=== PATIENT | male | born 1970 | race Caucasian/White ===

== ENCOUNTER 2017-08-24 08:48 | Emergency (ER) | payer OTHER ==
[~2017-08-24] VITALS: Wt 111.1 kg
[~2017-08-24 08:48] MED LIST: 'PARAFON FORTE500 M1 PO; AMOXICILLIN500 MG PO; ANTIVERT25 MG PO; BACTRIM DS 8001 TA1 PO; DICLOFENAC POT.50 MG PO; GOOD NEIGHBOR M25 M1 PO; HYDROCODONE BIT1 T11 PO; KEFLEX500 MG PO; MECLIZINE HCL25 M2 PO; NAPROSYN500 MG PO; PANTOPRAZOLE SO40 MG PO; PERCOCET 325 MG1 TA2 PO; ZANTAC 300300 MG PO
== END 2017-08-24 10:25 | disposition home or self-care (01) ==
LOC: ED 08:48
DX: S06.0X9A Concussion with loss of consciousness of unspecified duration, initial encounter (principal); F17.200 Nicotine dependence, unspecified, uncomplicated; W22.8XXA Striking against or struck by other objects, initial encounter; Y93.89 Activity, other specified; Y92.59 Other trade areas as the place of occurrence of the external cause; Y99.8 Other external cause status

== ENCOUNTER 2017-10-13 15:21 | Emergency (ER) | payer SELFPAY ==
[~2017-10-13] VITALS: Wt 111.1 kg
[2017-10-13] MEDS ORDERED: IBUPROFEN600 MG PO (20:03)
== END 2017-10-13 20:30 | disposition home or self-care (01) ==
LOC: ED 15:21
DX: S80.01XA Contusion of right knee, initial encounter (principal); Z98.890 Other specified postprocedural states; W01.0XXA Fall on same level from slipping, tripping and stumbling without subsequent striking against object, initial encounter; Y93.89 Activity, other specified; Y92.096 Garden or yard of other non-institutional residence as the place of occurrence of the external cause; Y99.9 Unspecified external cause status

== ENCOUNTER 2020-03-03 17:37 | Emergency (ER) | payer OTHER ==
[~2020-03-03] VITALS: Ht 177.8 cm; Wt 108.9 kg
[~2020-03-03 17:37] MED LIST changes: +IBUPROFEN600 MG PO
[2020-03-03] MEDS ORDERED: Motrin,Rufen800 MG PO (18:31)
[2020-03-03] MEDS ORDERED: AMOXICILLIN500 M2 PO (18:31)
== END 2020-03-03 18:45 | disposition home or self-care (01) ==
LOC: ED 17:37
DX: K08.89 Other specified disorders of teeth and supporting structures (principal); Z79.899 Other long term (current) drug therapy

== ENCOUNTER → 2021-03-11 | Outpatient (CLI) | payer OTHER ==
[~2021-03-11] MED LIST changes: +AMOXICILLIN500 M2 PO; +Motrin,Rufen800 MG PO
== END | disposition home or self-care (01) ==
LOC: COVID19 15:38
PROVIDERS: ATTEND Hospitalist
DX: U07.1 COVID-19 (principal)